=== PATIENT | female | born 1970 | race Caucasian/White ===

== ENCOUNTER 2019-04-30 12:41 | Emergency (ER) | payer SELFPAY ==
[2019-04-30 12:47] VITALS: TEMP 98.1; BMI 21.2
--- NOTE | 2019-04-30 13:07 | PDOC ---
Attending Attestation - Resident Resident Name: NeshaGina - ED Attending Attestation I have performed the following: I have examined & evaluated the patient, The case was reviewed & discussed with the resident, I agree w/resident's findings & plan, Exceptions are as noted - HPI HPI: 04/30/19 13:49 48y F hx of IDDM (off meds) present with vision loss in her R eye - the patient states that she was in her usual state of health until Wednesday when she noted some conjunctival injection without any other symptoms including itching pain headache nausea or vomiting. She she woke up yesterday and noted she had diminished vision in her right eye, describing a film over her eye. She went to see an co founder and president who recommended that she is seen pet resort concierge, but was later called to come to the ER. The patient has no other complaints including fever, chills, headache, neck pain, focal numbness, tingling, weakness, chest pain, palpitations, nausea, vomiting. Patient states her vision was otherwise at approximate baseline requiring corrective lenses for reading at distance. Patient denies any other symptoms including melena, polyuria, polydipsia, photophobia. Patient states she has been off her insulin for approximately 8 months due to insurance problems and has not checked her blood sugar. Physical Exam GENERAL: The patient is awake, alert, and fully oriented, Nontoxic - in no acute distress. HEAD: Normocephalic, atraumatic. EYES: extraocular movements intact, scleral injection on right eye, nonreactive pupil measuring [id number] on R eye, pt can read fingers held away at approx 3ft but cannot read snellen. unable to visualize optic disk using fundoscopy ENT: Normal voice, Moist mucous membranes. NECK: Normal range of motion, supple LUNGS: Breath sounds equal, clear to auscultation bilaterally. No wheezes, no rhonchi, no rales. HEART: Regular rate and rhythm, normal S1 and S2 without murmur, rub or gallop. ABDOMEN: Soft, nontender, No guarding, no rebound. No CVA tenderness EXTREMITIES: Normal range of motion, no edema. PSYCH: Normal mood, normal affect. SKIN: Warm, Dry, normal turgor, NEURO: Mental status: The patient is oriented x3. Cranial nerves: Cranial nerves II through XII are intact Motor: The upper extremities are 5 over 5 in all muscle groups. The lower extremities are 5 over 5 in all muscle groups. Negative pronator drift Sensation: Sensation is intact to light touch throughout. romberg negative Gait: Normal. Heel and toe walking are normal. Tandem gait is normal. Differential for the patient's symptoms includes gluacoma, vitreous hemorrhage, CRAO, CRVO, metabolic derangement Will ck labs, ekg, Tonometry was normal reading 16mm/hg will dw ophtho 04/30/19 15:56 Patient's labs were reviewed she is noted to be hyperglycemic however there are no signs of DKA Case was discussed with Ophtho high suspicion for possible hemorrhage due to uncontrolled diabetes, will refer the patient to urgent [id number] Return precautions were discussed - Physicial Exam PE: 04/30/19 15:57 See above - Medical Decision Making 04/30/19 15:57 See above
[2019-04-30] MEDS ORDERED: TETRACAINE 0.5% HCL 0.6ML DROPPER.BOTTLE OS ONE (13:24)
[2019-04-30] MEDS ORDERED: TETRACAINE 0.5% OPHTH SOLN 2 ML BOTTLE ONE (13:27)
--- NOTE | 2019-04-30 14:00 | PDOC ---
History of Present Illness - General Chief Complaint: Eye Problem Stated Complaint: RT EYE PAIN Time Seen by Provider: 04/30/19 12:58 - History of Present Illness Initial Comments: Amanda Tobin is a 48yo woman with a PMH of IDDM (no longer taking insulin) and hypothyroidism who presents with 3 days of right eye redness and vision loss. She reports that she noted that her eye was red 3 days ago, and she initially thought she had pinkeye. She denies any pain, burning, itching, watering, or discharge. Initially, her vision was at baseline. Yesterday, she states that when she woke up in the morning she noticed that it looked like there was a "film" over her vision. Everything was extremely blurry. She went to see an agent contract clerk yesterday. Ms Tobin says that she was initially told to follow up with ophthalmology on Wednesday, but she got a voicemail from later in the evening telling her to come to the ED for evaluation. She did not get the message until today and presented directly to the hospital. Ms Tobin states that other than the redness and vision changes, she has no symptoms. She has no redness, pain, or vision change to the left eye. She is able to move her eyes normally without any pain. She does note that she had swelling on the nasal side of her right eye a day or two ago, but this has since resolved. She additionally notes that she has not taken insulin for 8-9 months because she lost her insurance and no longer has a PMD. She has not been checknig her blood sugars. She denies any abdominal pain, nausea/vomiting, change in bowel habits, fevers/chills, polydipsia, dysuria, rash, chest pain, SOB, or other recent symptoms. Past History - Past Medical History Allergies/Adverse Reactions: Allergies Allergy/AdvReac Type Severity Reaction Status Date / Time alcohol Allergy Hives Verified 04/13/16 10:47 Home Medications: Ambulatory Orders Levothyroxine [Synthroid] 15 mcg PO DAILY 11/03/12 Ibuprofen 800 mg PO QID #30 tablet 04/13/16 Insulin (Levemir) [Levemir Vial] 15 unit SQ HS 04/13/16 COPD: No Diabetes: Yes HTN: No Thyroid Disease: Yes - Surgical History Cholecystectomy: Yes - Immunization History Td Vaccination: Yes - Psycho Social/Smoking Cessation Hx Smoking Status: No Smoking History: Never smoked Number of Cigarettes Smoked Daily: 0 Hx Alcohol Use: No Drug/Substance Use Hx: No Substance Use Type: None Review of Systems - Review of Systems Comments:: General: No fevers, no chills, no weight or appetite change, no malaise HEENT: See HPI CV: No chest pain, no palpitations, no LE edema Pulm: No SOB, no cough, no wheezing GI: No nausea or vomiting, no change in bowel habits, no melena : No frequency, no urgency, no dysuria Musc: No back pain, no joint swelling, no recent injury Skin: No rash, no lesions, no erythema Endo: No excessive thirst, no heat/cold intolerance Heme: No unusual bruising or bleeding, no swollen glands Neuro: No syncope, no numbness/tingling, no focal weakness Vasc: No claudication Psych: No recent change in mood, no SI or HI *Physical Exam - Vital Signs Last Vital Signs Temp Pulse Resp BP Pulse Ox 98.1 F 89 19 102/73 100 04/30/19 12:43 04/30/19 12:43 04/30/19 12:43 04/30/19 12:43 04/30/19 12:43 - Physical Exam General: Comfortable, no acute distress HEENT: Right eye w/ erythematous sclera, non-reactive pupil, filmy appearance over iris and pupil, no tearing or discharge. Left eye w/ no scleral injection, pupil reactive to light. Vision worse than 20/200 in both eyes. Able to see light/dark and fingers at arm's length. EOMI. MMM, voice normal, normal neck ROM Cards: RRR, no murmur appreciated Pulm: Comfortable on room air, clear to auscultation bilaterally Abd: Soft, nontender, nondistended Ext: Atraumatic. No LE edema. ROM intact. WWP Skin: Normal color, no rashes or lesions Neuro: A&Ox3, CN grossly intact, normal speech, motor/sensory grossly intact and symmetric Psych: Mood appropriate to situation ED Treatment Course - LABORATORY CBC & Chemistry Diagram: 04/30/19 14:30 04/30/19 14:30 - Medications Given in the ED: ED Medications Discontinued Medications Generic Name Dose Route Start Last Admin Trade Name Freq PRN Reason Stop Dose Admin Tetracaine HCl 1 drop 04/30/19 13:24 04/30/19 13:45 Tetravisc 0.5% Eye Drops - OS 04/30/19 13:25 1 drop ONCE ONE Administration Medical Decision Making - Medical Decision Making 04/30/19 13:53 Amanda Tobin is a 48yo woman with a PMH of IDDM (no longer taking insulin) and hypothyroidism who presents with 3 days of right eye redness and acute, painless vision loss. She additionally notes that she stopped taking insulin 8- 9 months ago due to insurance difficulties. She denies - Ddx includes acute glaucoma, iritis, keratitis, uveitis given red eye. However , these are usually painful. Central retinal artery or vein occlusion can cause painless vision loss but less likely red eye. Diabetic retinopathy not likely acute - Intraoccular pressure average 16 mmHg after 3 measurements; within normal range - Given likely uncontrolled DM, will check DKA labs - CBC, CMP, VBG, A1c, ketones, UA - EKG to eval for a-fib for possible embolic disease - Will call optho after evaluation for underlying medical conditions 04/30/19 15:15 - Labs reviewed. Hyperglycemia in 300's with b-hydroxybuterate elevated at 21. However, no acidosis or gap suggestive of DKA. - A1C 14, suggestive of chronically poorly controlled DM - Call to [facility] optho 04/30/19 15:45 - Spoke with Dr Silveira, [facility] ophthalmology. He feels this is most likely vitreous hemorrhage secondary to proliferative retinopathy from uncontrolled diabetes. There is no need for emergent intervention, but pt should b seen by a retinal specialist within 2-[address] Silveira suggests retinal specialist Dr Wright in [place] but says that if the pt cannot get an appointment nearby [facility] she may come to the clinic at [facility] ([phone]). - Updated pt. Will give contact information for Dr Wright, [place] [facility], and [facility] ophtho clinic. Discussed importance of close follow up. Ms Tobin understands and agrees - Additionally discussed diabetic control and establishing care with a PMD. Pt will call to schedule an appointment with the [facility] clinic. Discussed with Dr Celia Jeffries PGY2 Discharge - Discharge Information Problems reviewed: Yes Clinical Impression/Diagnosis: Vision loss of right eye Uncontrolled diabetes mellitus Qualifiers: Diabetes mellitus type: due to underlying condition Glycemic state: with hyperglycemia Qualified Code(s): E08.65 - Diabetes mellitus due to underlying condition with hyperglycemia Condition: Stable Disposition: HOME - Admission No - Follow up/Referral Referrals: Ludwig Wright [Staff Physician] - - Patient Discharge Instructions Patient Printed Discharge Instructions: DI for Diabetes Type 1 -- Adult Additional Instructions: Discharge Instructions: You were seen in the hospital for vision loss and red eye. You need to follow up with in the next 2-3 days with ophthalmology. It is very important that you have your eye examined by a specialist to help preserve your vision. 1. Dr Ludwig Wright, 2. [facility] eye clinic. Call [phone], say that Dr Silveira wants you to have an appointment this week. You will also need to be seen within the next week for management of your diabetes. You have been given contact information for the [facility] clinic. Seek immediate care for worsening symptoms, complete loss of vision, eye pain, drainage from your eye, or any other medical emergency. - Post Discharge Activity
[2019-04-30 14:43] LABS: BASO % 1.2 % (0-2.0); EOS % 9.6 % (0-4.5); HEMATOCRIT 39.7 % (32.4-45.2); HEMOGLOBIN 13.8 GM/dL (10.7-15.3); LYMPH % 33.4 % (8-40); MCH 32.3 pg (25.7-33.7); MCHC 34.7 g/dl (32.0-36.0); MEAN PLT VOLUME 7.8 fl (7.5-11.1); MONO % 6.3 % (3.8-10.2); NEUT % 49.5 % (42.8-82.8); PLATELET COUNT 241 K/MM3 (134-434); RBC 4.26 M/mm3 (3.60-5.2); RDW 13.5 % (11.6-15.6); WHITE BLOOD COUNT 5.1 K/mm3 (4.0-10.0)
[2019-04-30 14:59] LABS: VENOUS PC02 56.9 mmHg (38-52); VENOUS PH 7.36 (7.31-7.41); VENOUS PO2 < 49 mmHg (28-48)
[2019-04-30 15:11] LABS: ALBUMIN 3.4 g/dl (3.4-5.0); BILIRUBIN,TOTAL 0.4 mg/dL (0.2-1); BLOOD UREA NITROGEN 4.6 mg/dL (7-18); CALCIUM 8.4 mg/dL (8.5-10.1); CREATININE 0.7 mg/dL (0.55-1.3); POTASSIUM 3.5 mmol/L (3.5-5.1)
[2019-04-30 17:46] VITALS: BP 90/62; PULSE 94
--- NOTE | 2019-05-01 10:39 | EKG ---
Test Reason : Blood Pressure : / mmHG Vent. Rate : 088 BPM Atrial Rate : 088 BPM P-R Int : 174 ms QRS Dur : 070 ms QT Int : 404 ms P-R-T Axes : 057 010 042 degrees QTc Int : 488 ms NORMAL SINUS RHYTHM LOW VOLTAGE QRS PROLONGED QT ABNORMAL ECG WHEN COMPARED WITH ECG OF 13-APR-2016 11:59, NO SIGNIFICANT CHANGE WAS FOUND Confirmed by JONY MCGRAW MD ([id number]) on 05/01/2019 10:38:47 AM Referred By: Confirmed By:JONY MCGRAW MD
== END 2019-04-30 17:30 | disposition home or self-care (01) ==
LOC: JER 12:41
DX: E08.65 Diabetes mellitus due to underlying condition with hyperglycemia (principal); Z88.8 Allergy status to other drugs, medicaments and biological substances; E03.9 Hypothyroidism, unspecified; Z79.4 Long term (current) use of insulin
CPT/HCPCS: 36415; 80053; 82010; 82803; 83036; 85025; 93005; 93010; 99283-25